=== PATIENT | male | born 1965 | race Caucasian/White ===

== ENCOUNTER 2017-12-02 06:39 | Emergency (ER) | payer OTHER ==
[~2017-12-02] VITALS: Ht 175.3 cm; Wt 104.3 kg
[~2017-12-02 06:39] MED LIST: ATO40T PO; MET50T PO; METF-370 PO
[2017-12-02] MEDS ORDERED: KETOROLAC TROMETH 30 MG/ML 1ML VIAL ONE (07:07)
[2017-12-02 07:24] LABS: Basophils # (auto) 0.1 uL; Basophils % (auto) 0.6 % (0.0-2.0); Eosinophils # (auto) 0.2 uL; Eosinophils % (auto) 1.4 % (0.0-7.0); Hematocrit 41.6 % (41.0-53.0); Hemoglobin 14.2 g/dL (13.5-17.5); Lymphocytes # (auto) 2.2 uL; Lymphocytes % (auto) 17.5 % (10.0-50.0); Mean Corpuscular Hemoglobin 29.8 pg (28.0-32.0); Mean Corpuscular Volume 87.4 fL (80.0-100.0); Monocytes # (auto) 1.1 uL; Monocytes % (auto) 8.7 % (0.0-12.0); Neutrophils % (auto) 71.8 % (37.0-80.0); Platelet Count (auto) 410 10^3/uL (140-450); Red Blood Cells 4.75 10^6/uL (4.5-5.90); Red Cell Distribution Width 13.9 % (11.8-14.3); White Blood Cell 12.5 10^3/uL (4.4-10.8)
[2017-12-02 07:26] LABS: Alanine Aminotransferase 24 U/L (16-61); Albumin 3.4 g/dL (3.4-5.0); Anion Gap 9 (5-15); Aspartate Aminotransferase 8 U/L (15-37); BUN/Creatinine Ratio 14.3; Blood Urea Nitrogen 18 mg/dL (7-18); Calcium 8.8 mg/dL (8.5-10.1); Carbon Dioxide 23 mmol/L (21-32); Chloride 103 mmol/L (98-107); GFR African American 77 mL/min; GFR Non-African American 63 mL/min; Glucose 205 mg/dL (74-106); Magnesium 1.9 mg/dL (1.6-2.6); Potassium 4.3 mmol/L (3.5-5.1); Sodium 135 mmol/L (136-145)
[2017-12-02 07:30] LABS: INR 0.95 (0.9-1.15); Partial Thromboplastin Time 27.5 sec (23.78-33.04); Prothrombin Time 10.2 sec (9.27-12.13)
[2017-12-02 07:31] LABS: Alkaline Phosphatase 79 U/L (45-117); Bilirubin, Total 0.4 mg/dL (0.2-1.0); Total Protein 7.7 g/dL (6.4-8.2)
[2017-12-02] MEDS ORDERED: SODIUM CHLORIDE 0.9% 1,000 ML IV ONE ×2 (07:38)
[2017-12-02] MEDS ORDERED: KETOROLAC TROMETH 30 MG/ML 1ML VIAL IV ONE (07:45)
[2017-12-02 08:15] LABS: Urine WBC None Seen /hpf (0 - 3)
[2017-12-02 08:36] LABS: Urine Bacteria NONE SEEN /hpf (None Seen); Urine Blood Negative /uL (Negative); Urine Hyaline Cast FEW /lpf (0 - 2); Urine Mucus FEW (None Seen); Urine Specific Gravity 1.024 (1.001-1.035)
[2017-12-02] MEDS ORDERED: ONDANSETRON HCL 4 MG/2 ML VIAL IV ONE (11:00)
[2017-12-02] MEDS ORDERED: ONDANSETRON HCL 4 MG/2 ML VIAL ONE (11:00)
[2017-12-02] MEDS ORDERED: MORPHINE SULF INJ 2 MG/ML SYRINGE 1ML IV ONE (11:00)
[2017-12-02] MEDS ORDERED: MORPHINE SULFATE 4 MG/ML SYR/VIAL IV ONE ×3 (13:00→16:45)
[2017-12-02 14:14] VITALS: BP 127/65
[2017-12-02] MEDS ORDERED: MORPHINE SULFATE 4 MG/ML SYR/VIAL ONE (15:03)
[2017-12-02] MEDS ORDERED: HYDROmorphone HCL 2 MG/ML VL IV ONE (16:30)
== END 2017-12-02 17:59 | disposition left against medical advice (07) ==
LOC: ER 06:39 → EDBD 06:39 → ER 17:59
DX: R10.12 Left upper quadrant pain (principal); E11.9 Type 2 diabetes mellitus without complications; I10 Essential (primary) hypertension; E78.5 Hyperlipidemia, unspecified; F17.210 Nicotine dependence, cigarettes, uncomplicated; F12.10 Cannabis abuse, uncomplicated
CPT/HCPCS: 36415; 74176; 80053; 81001; 82962; 83605; 83735; 84484; 85025; 85610; 85730; 87040; 93005; 94761; 96374; 96375; 96376; 99285; J1885; J2270; J2405